=== PATIENT | female | born 1990 | race Caucasian/White ===

== ENCOUNTER 2016-08-25 18:21 | Emergency (ER) | payer BC ==
[2016-08-25] MEDS ORDERED: TDAP VACCINE 0.5 ML SUS IM ONE ×2 (19:03→19:04)
[2016-08-25 19:32] VITALS: BP 113/73; PULSE 92; RESP 16; TEMP 98.6; O2SAT 100
== END 2016-08-25 19:06 | disposition home or self-care (01) ==
LOC: ED 18:21
DX: S61.411A Laceration without foreign body of right hand, initial encounter (principal); W26.0XXA Contact with knife, initial encounter
CPT/HCPCS: 90715; 99282